=== PATIENT | male | born 1990 | race Hispanic/Latino ===

== ENCOUNTER 2023-05-14 15:41 | Emergency (ER) | payer OTHER ==
[~2023-05-14] VITALS: Ht 167.6 cm; Wt 81.6 kg
[2023-05-14 15:51] VITALS: BP 121/73; PULSE 118; RESP 16; O2SAT 96
[2023-05-14] MEDS ORDERED: HYDROCODONE/ACETAMINOPHEN 5/325 MG TAB PO ONE (18:30)
[2023-05-14] MEDS ORDERED: KETOROLAC 60 MG VIAL (30MG/ML) IM ONE (18:30)
[2023-05-14] MEDS ORDERED: CEFTRIAXONE 1G VIAL IM ONE (18:30)
[2023-05-14 18:31] LABS: BASOPHILS # (AUTO) 0.03 K/uL (0.00-0.20); BASOPHILS % (AUTO) 0.3 % (0.0-5.0); HEMATOCRIT 46.8 % (42-54); IMMATURE GRANULOCYTE ABSOLUTE 0.03 K/uL (0-1); LYMPHOCYTES # (AUTO) 1.5 K/uL (1.0-4.8); LYMPHOCYTES % (AUTO) 14.8 % (21.0-51.0); MEAN CORPUSCULAR HGB CONC 34.4 g/dL (32.0-36.0); MONOCYTES # (AUTO) 1.1 K/uL (0.1-1.0); MONOCYTES % (AUTO) 10.2 % (3.0-13.0); NEUTROPHILS # (AUTO) 7.7 K/uL (1.8-7.7); NEUTROPHILS % (AUTO) 74.4 % (40.0-77.0); PLATELET COUNT (AUTO) 178 K/uL (130-400); RED BLOOD CELL COUNT(AUTO) 5.03 MIL/uL (4.50-6.20); WHITE BLOOD COUNT (AUTO) 10.4 K/uL (4.8-10.8)
[2023-05-14 18:44] LABS: CREATININE 1.1 mg/dL (0.5-1.5); POTASSIUM 3.3 mmol/L (3.5-5.1)
[2023-05-14 18:49] LABS: ALBUMIN 3.6 g/dL (3.5-5.0); BILIRUBIN,TOTAL 0.8 mg/dL (0.2-1.0); TOTAL PROTEIN, SERUM 8.6 g/dL (6.0-8.3)
[2023-05-14] MEDS ORDERED: AMOX1TAB16 PO (20:30)
[2023-05-14] MEDS ORDERED: METH4TAB3 PO (20:30)
[2023-05-14] MEDS ORDERED: IBUP-2070 PO (20:30)
[2023-05-14] MEDS ORDERED: ACET-2079 PO (20:30)
== END 2023-05-14 21:28 | disposition home or self-care (01) ==
LOC: EDH 15:41
DX: K11.20 Sialoadenitis, unspecified (principal); F41.9 Anxiety disorder, unspecified; Z79.899 Other long term (current) drug therapy
CPT/HCPCS: 99285; 70490; 84484; 80053; 85025; 87040 ×2; 83605; 36415; 96372 ×2; 93005; J0696; J1885